=== PATIENT | female | born 1950 | race African-American/Black ===

== ENCOUNTER 2024-05-30 21:52 | Emergency (ER) | payer MEDICARE, MEDICAID ==
[2024-05-30] MEDS ORDERED: HYDROcodone/Acetaminophen 5/325 mg Tablet ONE (22:21)
[2024-05-30] MEDS ORDERED: Lidocaine 4% Patch ONE (22:21)
== END 2024-05-30 23:05 | disposition home or self-care (01) ==
LOC: CSHERS 21:52
DX: S40.021A Contusion of right upper arm, initial encounter (principal); M25.561 Pain in right knee; I10 Essential (primary) hypertension; W18.30XA Fall on same level, unspecified, initial encounter
CPT/HCPCS: 99283